=== PATIENT | female | born 1965 | race Caucasian/White ===

== ENCOUNTER 2018-07-11 17:21 | Emergency (ER) | payer MEDICAID, OTHER ==
--- NOTE | 2018-07-11 17:54 | ED Physician Documentation ---
History of Present Illness - Stated complaint Stated Complaint: RAPID HEART RATE - Chief complaint Chief Complaint: Cardiac - Additonal information Additional information: 53-year-old female presents the emergency department with an episode of a racing heart which occurred today. Presently, the patient feels back to normal and denies any abnormal sensation in her chest. The patient denied chest pain, abdominal pain, fevers, chills or dysuria. The symptoms lasted 5 minutes and then spontaneously resolved.No specific triggering factors. No other associated symptoms Review of Systems Constitutional: denies: Fever Eyes: denies: Photophobia Ears: denies: Ear pain Nose: denies: Rhinorrhea / runny nose Throat: denies: Sore throat Cardiac: reports: Palpitations. denies: Chest pain / pressure, Pedal edema, Calf pain Respiratory: denies: Cough GI: denies: Abdominal Pain : denies: Dysuria Musculoskeletal: denies: Neck pain Neurologic: denies: Generalized weakness Immunocompromised: denies: Chemotherapy PD PAST MEDICAL HISTORY - Past Medical History Cardiovascular: None Respiratory: None Endocrine/Autoimmune: None GI: None : None HEENT: None Psych: None Musculoskeletal: Chronic back pain Derm: None - Past Surgical History Past Surgical History: Yes Ortho: Other HEENT: Other - Allergies Allergies/Adverse Reactions: Allergies Allergy/AdvReac Type Severity Reaction Status Date / Time No Known Drug Allergies Allergy Verified 07/11/18 17:37 - Social History Does the pt smoke?: No Smoking Status: Never smoker Does the pt drink ETOH?: Yes Does the pt have substance abuse?: No - Immunizations Immunizations are current?: Yes - POLST Patient has POLST: No PD ED PE NORMAL - General General: Alert and oriented X 3, No acute distress - HEENT HEENT: Atraumatic, PERRL, EOMI, Ears normal - Neck Neck: No bruit - Cardiac Cardiac: RRR, Strong equal pulses - Respiratory Respiratory: No respiratory distress, Clear bilaterally - Derm Derm: Normal color - Extremities Extremities: No deformity, Normal ROM s pain, No edema - Neuro Neuro: Alert and oriented X 3, Normal speech - Psych Psych: Normal affect Results - Vitals Vitals: Vital Signs - 24 hr 07/11/18 07/11/18 17:25 17:57 Temperature 36.4 C L Heart Rate 70 71 Respiratory 16 18 Rate Blood Pressure 124/60 116/62 O2 Saturation 100 98 Oxygen O2 Source Room air - EKG (time done) 17:34 Rate: Rate (enter#) Rhythm: NSR Intervals: Normal CT, QRS normal Ischemia: Normal ST segments PD MEDICAL DECISION MAKING - ED course ED course: The patient declined any lab work or imaging in the emergency department. The patient reports that she wants to be discharged and will follow up with primary care since she feels much improved. I advised that we are unable to rule out any metabolic abnormality to explain her symptoms. The patient understands. I advised that she should return to the emergency department at any point for reevaluation. - Sepsis Event Vital Signs: Vital Signs - 24 hr 07/11/18 07/11/18 17:25 17:57 Temperature 36.4 C L Heart Rate 70 71 Respiratory 16 18 Rate Blood Pressure 124/60 116/62 O2 Saturation 100 98 Oxygen O2 Source Room air Departure - Departure Disposition: 01 Home, Self Care Clinical Impression: Palpitations Condition: Good Instructions: Heart Palpitations Follow-Up: Genny Cardona PA [Primary Care Provider] - Comments: You declined any lab work or imaging in the emergency department. You understan d that we cannot fully assess your symptoms. Please return to the emergency department any point for reevaluation
[2018-07-11 17:58] VITALS: BP 116/62
== END 2018-07-11 18:11 | disposition home or self-care (01) ==
LOC: ED 17:21
DX: R00.2 Palpitations (principal)
CPT/HCPCS: 80053; 82550; 83690; 84439; 84443; 84484; 85025; 93005; 99282; 99283

== ENCOUNTER 2024-03-29 13:22 | Outpatient (CLI) | payer SELFPAY | END 2024-03-29 23:59 | disposition short-term general hospital (02) | LOC: EMS 13:22 | DX: S00.83XA Contusion of other part of head, initial encounter (principal); R51.9 Headache, unspecified; R11.0 Nausea; W11.XXXA Fall on and from ladder, initial encounter; Y93.H9 Activity, other involving exterior property and land maintenance, building and construction; Y92.008 Other place in unspecified non-institutional (private) residence as the place of occurrence of the external cause | CPT/HCPCS: A0425; A0427 ==